=== PATIENT | female | born 1960 | race Caucasian/White ===

== ENCOUNTER 2020-12-18 06:57 | Day surgery (SDC) | payer OTHER ==
[~2020-12-18] VITALS: Ht 165.1 cm; Wt 74.8 kg
--- NOTE | ~2020-12-18 | O ---
[facility] [place] [address] OPERATIVE REPORT Name: BRINA HOLDER Room #: 150-5 [facility]#: [id number] Admission: 12/18/20 Attend Phys: Darrin Sher MD Discharge: Date of : 58 Report #: [id number] THIS REPORT FOR: cc: FAM - Family physician unknown FAM - Family physician unknown Darrin Sher MD ~ cc: Dl Baltazar MD, Kimmy Villalba NP DATE OF SERVICE: 12/18/2020 DATE OF SURGERY: 12/18/2020 PREOPERATIVE DIAGNOSIS: Basal cell carcinoma of right lower lid and cheek. POSTOPERATIVE DIAGNOSIS: Basal cell carcinoma of right lower lid and cheek. PROCEDURES: Excision of basal cell carcinoma of right lower lid and cheek (5 cm) with frozen sections and musculocutaneous flap repair of defect based on the temporalis muscle. SURGEON: Darrin Sher MD MANUFACTURING LEAD: None. ANESTHESIA: General. COMPLICATIONS: None. INDICATIONS FOR SURGERY: This pleasant 60-year-old woman has a neglected ulcerative mass in her right lower lid and cheek that has been biopsy proven to be basal cell carcinoma. She self-treated it with an ulcerating agent that has extended it down to the periosteum. She presents today for excision of this tumor with frozen sections and subsequent reconstruction of that defect. Informed consent was obtained to include, but not limited to, the potential risk for loss of vision, bleeding, infection, failure to improve the problem, the potential need for further surgery or treatment. DESCRIPTION OF PROCEDURE: The patient was taken to the operating room where general anesthesia was administered. The right lower lid, the right lateral canthus, the right infratemporal fossa, the right cheek, the right upper lid, and the bridge of the nose were anesthetized with Xylocaine with epinephrine mixed with Marcaine and Wydase. The patient was subsequently prepped and draped in the usual sterile fashion. A fine tip skin marking pen was then utilized to outline the lesion with approximately 2 mm border around its edges. The incisions were then made with a 15 blade and drawn down into the buccal fat in the periosteum. The deep dissection was accomplished with Tracey scissors. [facility] [address] [place] [address] OPERATIVE REPORT Name: BRINA HOLDER Room #: 150-5 [facility]#: [id number] Admission: 12/18/20 Attend Phys: Darrin Sher MD Discharge: Date of : 58 Report #: [id number] The initial specimen included sections of the angular artery and the angular vein. More laterally, this included the facial artery and the facial vein. The specimen was then oriented on a drawing for the waiting pathologist. Pressure was kept on the wound. The wound was then dried with diligent pinpoint monopolar cautery. Maintaining coagulation superomedially was the most challenging area and some contemplation was given to placing a clip or ligature in this area, but it was eventually able to be dried with the monopolar cautery by itself. I did not want to leave a clip in her face if I did not have to. The specimen was then analyzed by the pathologist utilizing frozen sections. She returned advising that the margins appeared to be clear. The only margin she was somewhat concerned about was superior nasal, which was the area of the vasculature where more difficulty was encountered in maintaining hemostasis. The decision was made not to submit additional tissue in that area. A relaxing incision was then made superolaterally to allow access to the infratemporal fossa and a temporalis musculocutaneous flap. Hemostasis was then re-achieved. The fasciocutaneous flap was then advanced and secured with multiple interrupted 5-0 Vicryl sutures that burton the temporalis tissue and the lateral portion of the cheek more nasally relatively well. A second subcutaneous layered closure was accomplished with interrupted 6-0 Vicryl sutures. The final skin closure was accomplished with 6-0 plain gut sutures and then 6-0 nylon sutures laterally. The advanced flap was left in a relaxed skin tension fold position, the relaxed skin tension fold itself was actually in the laboratory at this point because it has been in the tumor, but the new incision line was in that same space inferomedially and then sloped more superolaterally back out towards the external auditory meatus as the flap was advanced. The wounds were cleaned and dressed with erythromycin ointment and the patient subsequently transported to the recovery area having tolerated the procedures well with no anesthetic or operative complications being noted. By: [id number] Darrin Sher MD /nt
--- NOTE | 2020-12-19 15:08 | PATH ---
[facility] [place] [address] PATHOLOGY RPT PROCEDURE Name: BRINA HOLDER Room #: DEP [facility]#: [id number] Admission: 12/18/20 Date of : 58 Discharge: 12/18/20 Report #: [id number] Path Case #: [id number] [facility] Accession Number: [id number] . 01 Material submitted: . cheek - BASAL CELL CARINOMA RIGHT LOWER LID CHEEK FS. Modifiers: right, lower . 01 Clinical history: . EXCISION BCC EXCISON BCCA RIGHT LOWER LID . 02 Frozen section diagnosis: . FROZEN SECTION DIAGNOSIS: FSA1. Basal cell carcinoma, right lower lid/cheek: - Basal cell carcinoma. - Tumor is close to superior to medial (deep) margin. Other margins are free. . The report was conveyed to Dr. Sher by Dr. Avalos on 12/18/2020 at 10:25 am and a written report is placed in the patient's chart. (ANK:wanda; 12/18/2020) . FROZEN SECTION GROSS DESCRIPTION: Received fresh from the operating room is a skin ellipse which measures 3.0 x 1.5 x 1.0 cm. The specimen is oriented by the surgeon as superior, medial, inferior, and lateral and subsequently oriented by the pathologist as clock positions. Superior is 12:00, medial 3:00, inferior 6:00 and lateral 9:00. The specimen is inked as follows: Lateral to medial black, medial to inferior blue, and inferior to lateral red. The specimen is serially sectioned and a cross section of the superior to inferior margin, medial and lateral margins are frozen in FSA1 and subsequently submitted in block A1. The rest of the lesion is submitted in block A2. (ANK:pit; 12/18/2020) . Frozen section performed at [facility], [address] [place] [address] , [place] [address]. NNK/QTP . 02 Diagnosis: Basal cell carcinoma, right lower lid/cheek, excision: - Basal cell carcinoma, measuring 1.0 cm in greatest dimension. - All peripheral and deep margins are negative for malignancy. - Negative for perineural invasion. . (ANK:mml; 12/19/2020) [facility] 12/19/2020 [address] [address] PATHOLOGY RPT PROCEDURE Name: BRINA HOLDER Room #: DEP [facility] John#: [id number] Admission: 12/18/20 Date of : 58 Discharge: 12/18/20 Report #: [id number] Path Case #: [id number] . 02 Comment: This case has been co-reviewed by Dr. Nan Rob who concurs with the above diagnosis on 12/19/2020. . (ANK:mml; 12/19/2020) . 02 Electronically signed: . Deepa Avalos MD, Pathologist NPI- [id number] . 01 Gross description: . PLEASE SEE FROZEN SECTION GROSS DESCRIPTION DKA/DKA 12/19/2020 1353 Local . 02 Pathologist provided ICD-10: C44.319 . 02 CPT . 461187, [id number] Specimen Comment: A courtesy copy of this report has been sent to [phone] Specimen Comment: Report sent to Performed at: [address] [facility] [address], [place] [id number] MD Galen Ramirez MD Phone: [phone] Performed at: [address] [facility] [address] [id number] MD Nan Rob MD Phone: [phone]
== END 2020-12-18 11:30 | disposition home or self-care (01) ==
LOC: OR 06:57 → TBA 07:05 → OR 10:13
PROVIDERS: ATTEND Ophthalmology
DX: C44.1122 Basal cell carcinoma of skin of right lower eyelid, including canthus (principal); C44.319 Basal cell carcinoma of skin of other parts of face; F17.210 Nicotine dependence, cigarettes, uncomplicated; Z98.890 Other specified postprocedural states; Z79.899 Other long term (current) drug therapy; Z20.822 Contact with and (suspected) exposure to COVID-19; Z90.710 Acquired absence of both cervix and uterus
CPT/HCPCS: 50010; 50101; 50386; 50398; 51636; 56526; 56528; 56531; 62110; 62900; 64037; 70005